=== PATIENT | female | born 1965 | race American Indian/Alaskan Native ===

== ENCOUNTER 2022-07-13 13:44 | Outpatient (CLI) | payer OTHER ==
--- NOTE | 2022-07-13 14:28 | XRay Report ---
Lumbar spine 3 views INDICATION: Numbness FINDINGS: Alignment appears normal. No compression fracture or subluxation. Facet degenerative change s seen throughout. Signer Name: Brian Malone MD Signed: 07/13/2022 2:24 PM Workstation Name: [id number]
== END 2022-07-13 13:45 | disposition home or self-care (01) ==
LOC: EDBD 13:44 → XRAY 13:44
PROVIDERS: ATTEND Internal Medicine
DX: M47.817 Spondylosis without myelopathy or radiculopathy, lumbosacral region (principal)
CPT/HCPCS: 72100